=== PATIENT | female | born 2005 | race Caucasian/White ===

== ENCOUNTER 2025-02-19 14:03 | Emergency (ER) | payer BC, SELFPAY ==
[2025-02-19 14:03] VITALS: BP 109/68
[2025-02-19 14:32] VITALS: BMI 23.1
[2025-02-19 14:55] LABS: Hematocrit 43.9 % (37.0-47.0); Hemoglobin 15.3 g/dL (12.0-16.0); Mean Corp Hgb Conc. 34.9 g/dL (33.0-37.0); Mean Corpuscular Volume 84.4 fL (81.0-99.0); Nucleated Red Blood Cells % 0 %; Platelet Count 189 10^3/uL (130-400); Red Cell Dist. Width 12.7 % (11.5-14.5)
[2025-02-19 15:00] VITALS: BP 109/69
[2025-02-19 15:07] LABS: ALT (SGPT) 24 U/L (0-35); AST (SGOT) 27 U/L (14-36); Albumin 4.7 g/dl (3.5-5.0); Alkaline Phosphatase 84 U/L (38-126); Blood Urea Nitrogen 16 mg/dl (7-17); Calcium 9.5 mg/dl (8.4-10.2); Carbon Dioxide 24 mmol/L (22-30); Chloride 102 mmol/L (98-107); Estimated Creatinine Clearance 97 ml/min; Glucose 102 mg/dl (70-99); Lipase 61 U/L (23-300); Potassium 4.4 mmol/L (3.5-5.1); Sodium 134 mmol/L (135-145); Total Protein 7.5 g/dl (6.3-8.2); eGFR > 60.00
[2025-02-19] MEDS: OMNIPAQUE 50 ML PO (15:14)
[2025-02-19] MEDS: ZOFRAN 4 MG IV (15:20)
[2025-02-19 16:00] VITALS: BP 93/46
--- NOTE | 2025-02-19 16:04 | ED.GENMED ---
History of Present Illness
General
Chief Complaint: Abdominal Symptoms
Time Seen by Provider: 02/19/25 14:33
History of Present Illness
History of Present Illness:
Casper is a 19-year-old female with no past medical history presents complaining of 12 hours of nausea vomiting diarrhea and mild abdominal cramping near her umbilicus. Has not tried to eat anything since yesterday. Is able to tolerate fluids.
Denies any fevers, chills, rigors or other systemic symptoms.
Phy Exam
General Physical Exam
General Presentation: well appearing and no apparent distress
General Skin: warm and dry
General Habitus: normal
General Mental: alert
General Hydration: appears well hydrated
ENT Exam
ENT Exam: EOMI, pharynx normal, neck supple and normocephalic
Eye Exam
Eye Exam: PERRL, cornea clear and conjunctiva normal
Cardiovascular Exam
Cardiovascular Exam: regular rate/rhythm, no edema, no murmur and normal peripheral pulses
Pulmonary Exam
Pulmonary Exam: lungs clear, no respiratory distress, no rales, no crackles, no rhonchi, no stridor, no wheezing and no cough
Gastrointestinal Exam
Gastrointestinal Exam: normal bowel sounds, non tender, soft, no organomegaly, no pulsatile mass and non distended
Neurological Exam
Neurological Exam: alert, oriented x3, no motor deficits and speech normal
Musculoskeletal Exam
Musculoskeletal Exam: full ROM and no edema
Skin Exam
Skin Exam: normal color, warm/dry, no rash and no petechia
Psychiatric Exam
Psychiatric Exam: normal mood/affect
Course
Orders/Labs/Results
Orders:
Orders
02/19/25 14:43
CMP [Comprehensive Metabolic Panel] Urgent
Complete Blood Count/With Diff Urgent
HCG, Serum Qualitative Screen Urgent
Comment: ADD ON
Lipase Urgent
02/19/25 15:02
Iohexol [Omnipaque] See Protocol PO NOW STA
02/19/25 15:03
CT Abd/pel W Iv And Oral Contr Urgent
Comment:
Reason For Exam: abdominal pain and nausea
02/19/25 15:17
Test Result ONCE
02/19/25 15:19
Ondansetron Injectable [Zofran] 4 mg .ROUTE .STK-MED ONE
02/19/25 15:20
Ondansetron Injectable [Zofran] 4 mg IV NOW STA
02/19/25 15:31
Add On- LAB Urgent
Tests Added?: hcg qual
02/19/25 18:25
Acetaminophen [Tylenol] 1,000 mg PO NOW STA
02/19/25 19:08
Ondansetron Orally Disint [Zofran Odt (Orally Disintegrating)] 4 mg .ROUTE .STK-MED ONE
02/19/25 19:12
Ondansetron Orally Disint [Zofran Odt (Orally Disintegrating)] 4 mg PO NOW STA
Abnormal Lab Results
02/19/25
14:43
Absolute Neuts (auto) 6.7 H 10^3/uL
(1.4-6.5)
Absolute Lymphs (auto) 0.2 L 10^3/uL
(1.2-3.4)
Neutrophils % 91.4 H %
(42.2-75.2)
Lymphocytes % 2.9 L %
(20.5-51.1)
Sodium 134 L mmol/L
(135-145)
Glucose 102 H mg/dl
(70-99)
02/19/25 14:43
02/19/25 14:43
Vital Signs
Initial and Last Documented VS:
Initial Vital Signs
Temp Pulse Resp BP Pulse Ox
36.7 C 144 19 109/68 97
02/19/25 14:03 02/19/25 14:03 02/19/25 14:03 02/19/25 14:03 02/19/25 14:03
Last Documented Vital Signs
Temp Pulse Resp BP Pulse Ox
36.9 C 95 21 99/72 97
02/19/25 18:00 02/19/25 17:00 02/19/25 17:00 02/19/25 17:00 02/19/25 17:00
MDM/Problems Addressed
Differential Diagnosis Includes:
Patient is very concerned about possibility of having appendicitis. Although this does seem like viral gastroenteritis will obtain CT imaging to rule out appendicitis.
Patient received 1 L fluid bolus and Zofran with improvement in her symptoms. Was initially tachycardic but this improved after fluids.
CT imaging resulted and is negative for any intra-abdominal pathology. On reevaluation patient is now having new onset of rigors and noted to have a temperature of 100.7. Given Tylenol with improvement.
Overall patient feels improved. Will discharge in the ER with strict return precautions. Discussed importance to maintain good hydration while she is not feeling well and can use water or Pedialyte. A prescription for Zofran was sent to her
pharmacy.
*Pulse Oximetry
SaO2: 97
Oxygen Mode of Delivery: Room air
Patient hypoxic: no
*Critical Care Note
Total Time (30-74mins, 75-104mins- exclusive of procedures): Not Applicable
ED Attending Note
-
Portions of this chart may have been created with voice recognition software.� Occasional wrong word or��sound alike� substitutions may have occurred due to the inherent limitations of voice recognition software.
Discharge Plan
Departure
Patient Disposition: Home (Routine Discharge)
Date of Disposition: 02/19/25
Time of Disposition: 18:58
Patient with high blood pressure during this ER visit?: No
Discharge Problem:
Gastroenteritis, Viral illness, Nausea & vomiting, Fever
Instructions: Viral gastroenteritis in adults
Prescriptions:
New
ondansetron HCl 4 mg tablet
4 mg PO Q8H PRN (Reason: nausea and vomiting) Qty: 14 0RF
Referrals:
NONE,* [Family Provider, Internal Medicine]
Activity Restrictions/Additional Instructions:
It is important stay well-hydrated while you are experiencing the symptoms. You can drink either water or Pedialyte. He prescription for Zofran and antinausea medication has been sent to your pharmacy. Return to the ER if you develop fevers that
are not responsive to Tylenol or Motrin or unable to tolerate any oral intake.
Interventions
Interventions:
*General Assessment Last Done: 02/19/25 14:06
*Neglect/Abuse Screening Last Done: 02/19/25 14:06
*ED COVID-19 Vaccine History Last Done: 02/19/25 14:06
*ED Influenza Vaccine History Last Done: 02/19/25 14:06
*Risk Screen - Suicide (C-SSRS) Last Done: 02/19/25 14:06
*Nursing Disposition Last Done: 02/19/25 17:06
DI-Fhbigz-Vbcsrynuyt Assessment Last Done: 02/19/25 14:49
Discharge Date and Time
Discharge Date/Time: 02/19/25 17:07
Print Language: ESTONIAN
[2025-02-19 16:11] LABS: HCG, Serum Qualitative Screen Negative
[2025-02-19 17:00] VITALS: BP 99/72
[2025-02-19] MEDS: TYLENOL 1000 MG PO (18:28)
[2025-02-19] MEDS: ZOFRAN ODT (ORALLY DISINTEGRATING) 4 MG PO (19:12)
== END 2025-02-19 19:41 | disposition home or self-care (01) ==
LOC: EMR 14:03
PROVIDERS: Emergency Medicine; EMERGENCY PHYSICIAN Student in an Organized Health Care Education/Training Program
DX: A08.4 Viral intestinal infection, unspecified (principal); R50.9 Fever, unspecified
CPT/HCPCS: 96374; 99284; 74177; 80053; 83690; 84703; 85025; Q9967